=== PATIENT | female | born 1960 | race Caucasian/White ===

== ENCOUNTER 2021-01-06 12:01 | Emergency (ER) | payer OTHER, SELFPAY ==
--- NOTE | ~2021-01-06 | XR_ITS ---
EXAMINATION: XR wrist RT min 3V DATE: 01/06/2021 13:21 INDICATION: Possible dorsal subluxation at the distal radioulnar joint post fall. TECHNIQUE: Posteroanterior, ulnar deviation, oblique, and lateral views of the right wrist were obtai kim. COMPARISON: none FINDINGS: Normal alignment at the distal radioulnar joint. Osteoarthritis, mild to moderate severity with mild palmar subluxation at the second metacarpophalangeal joint and moderate severity with moderate palmar subluxation at the third metacarpophalangeal joint. No fracture. Additional mild polyarticular osteo arthritis at the distal radioulnar, triscaphe, first carpometacarpal, first metacarpophalangeal and a few predominantly distal interphalangeal joints. Mild soft tissue swelling dorsal to the third metac arpophalangeal joint. IMPRESSION: 1. Normal alignment at the distal radioulnar joint with mild osteoarthritis. 2. 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 Reviewed, dictated and finalized at location A. IMPRESSION: 1. Normal alignment at the distal radioulnar joint with mild osteoarthritis. 2. 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
--- NOTE | ~2021-01-06 | XR_ITS ---
EXAMINATION: XR finger 1st RT min 2V DATE: 01/06/2021 12:39 INDICATION: Hyperextension injury to the right thumb TECHNIQUE: Dorsal palmar, lateral and oblique views of the right first digit were obtained COMPARISON: Radiographs dated 09/28/2015 FINDINGS: No acute fracture. Again seen is a small corticated heterotopic ossicle at the ulnar side of the firs t metacarpophalangeal joint which could represent sequela of old trauma. Mild osteoarthritis at the t riscaphe, first carpometacarpal and first and second metacarpophalangeal joints. Suggesting of dorsal subluxation of the ulna at the distal radioulnar joint on the lateral projection although this would be better evaluated on and lateral radiograph of the wrist in standard position. IMPRESSION: 1. No acute osseous abnormality at the right thumb. 2. 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 3. Suggestion of possible dorsal subluxation at the distal radioulnar joint however assessment is boo ited on radiographs oriented with respect to the axis of the thumb. If clinically indicated could con apparel cutter dedicated right wrist radiographs for further evaluation. Reviewed, dictated and finalized at location A. IMPRESSION: 1. No acute osseous abnormality at the right thumb. 2. 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 3. Suggestion of possible dorsal subluxation at the distal radioulnar joint how ever assessment is limited on radiographs oriented with respect to the axis of the thumb. If clinically indicated could consider dedicated right wrist radiogr aphs for further evaluation.
[2021-01-06 12:08] VITALS: BP 176/94; PULSE 88; RESP 20; TEMP 36.7; O2SAT 100
--- NOTE | 2021-01-06 12:09 | ED.UPPEXIN ---
HPI - Extremity Injury (Upper) General Chief Complaint: Extremity Injury, Upper Stated Complaint: right hand thumb injury Time Seen by Provider: 01/06/21 13:00 Source: patient and RN notes reviewed Mode of arrival: ambulatory Limitations: no limitations History of Present Illness HPI narrative: 60-year-old female presents with concern for right thumb injury. Reports today she fell landing on her right hand. Reports noticing her right thumb was possibly out of place/deformed. Reports she shook her hand hard in the thumb went back into place. She reports she is concerned over swelling and bruising of the thumb. Reports slightly decreased range of motion due to the swelling. She denies decreased sensation, strength. She denies other intervention. She denies other injury or pain to the hand or wrist. MD complaint: injury to: right and finger Related Data Home Medications Medication Instructions Recorded Confirmed aspirin 325 mg PO DAILY 01/06/21 01/06/21 omeprazole 20 mg PO DAILY 01/06/21 01/06/21 Allergies Allergy/AdvReac Type Severity Reaction Status Date / Time codeine AdvReac Drowsy Verified 01/06/21 12:36 Review of Systems Review of Systems: CONSTITUTIONAL: Denies malaise, chills, sweats, or fever. SKIN: Denies lacerations, abrasions, warmth, redness MUSCULOSKELETAL: Reports first right digit pain, swelling, bruising NEUROLOGIC: Denies numbness, weakness All systems reviewed & are unremarkable except as noted in HPI and below PMFSH Comments At time of signature, agree with nursing past medical, surgical, social and family history. There is no relevant family history pertinent to the presenting complaint Exam Narrative: GENERAL: Well-appearing, well-nourished, and in no acute distress. HEAD: Normocephalic EYES: PERRLA, conjunctivae clear NECK: Supple. CHEST: Speaks in full sentences. No respiratory distress. HEART: Regular rate and rhythm. Normal and equal peripheral pulses. EXTREMITIES: First digit of right hand has normal strength and sensation. 5/5 strength with digit flexion, extension. Range of motion normal. No clubbing, cyanosis. Moderate ecchymosis and edema noted. Mild digit tenderness. Skin intact. Normal digital cascade with flexion of fingers, median, ulnar and radial nerve intact. Normal sensation of each side of finger. Can perform 'okay' sign, 'cross over finger test of index and middle fingers' and 'thumbs up' sign. No scissoring. Normal thumb opposition. Good capillary refill and radial pulse. Distal capillary refill less than 3 seconds. No right wrist tenderness, swelling, bruising noted, normal right wrist range of motion SKIN: Warn, dry, intact, pink. No rash NEURO: Alert and oriented x3. PSYCH: Normal mood and affect Course Course Emergency Course: Patient is aware of diagnosis, understands and agrees to treatment plan. Anticipatory guidance given. Patient agrees to follow-up as directed and is aware of reasons to seek care at the emergency department. Portions of this record may have been created with voice recognition software Vital Signs Vital signs: Vital Signs Temperature 98.1 F 01/06/21 12:08 Pulse Rate 88 01/06/21 12:08 Respiratory Rate 20 01/06/21 12:08 Blood Pressure 176/94 H 01/06/21 12:08 Pulse Oximetry 100 01/06/21 12:08 Temperature 98.1 F 01/06/21 12:08 Pulse Rate 88 01/06/21 12:08 Respiratory Rate 20 01/06/21 12:08 Blood Pressure 170/90 H 01/06/21 13:00 Pulse Oximetry 100 01/06/21 12:08 Reviewed. Patient has been instructed to follow up with her primary care provider within the next week regarding her elevated blood pressure today. MDM - Extremity Injury (Upper) MDM Narrative Medical decision making narrative: Patients injury and pain is consistent with musculoskeletal etiology. No signs of neurological or vascular compromise on exam. Compartments and tissues are soft without signs of compartment syndrome. Pain is felt appropriate
[2021-01-06 13:00] VITALS: BP 170/90
== END 2021-01-06 14:10 | disposition home or self-care (01) ==
PROVIDERS: Emergency Provider Nurse Practitioner; PCP Family Medicine
DX: S69.91XA Unspecified injury of right wrist, hand and finger(s), initial encounter (principal); W19.XXXA Unspecified fall, initial encounter
CPT/HCPCS: 29130; 73110; 73140; 99203; G0463